=== PATIENT | male | born 1945 | race Caucasian/White ===

== ENCOUNTER 2024-05-28 19:48 | Emergency (ER) | payer MEDICARE, SELFPAY ==
--- NOTE | ~2024-05-28 | XR_ITS ---
EXAMINATION: XR TOES, LEFT CLINICAL INFORMATION: Second toe pain, evaluate for osteomyelitis. COMPARISON: None available. TECHNIQUE: 3 views of the left toes were obtained. FINDINGS: Very limited evaluation of the second toe due to hammertoe deformity. Within limitations, no discrete displaced fracture or aggressive-appearing osseous abnormality. Punctate radiopacity in the ventral soft tissues adjacent to the second toe could represent a tiny foreign body. XR/XR toe LT min 2V IMPRESSION: Very limited evaluation of the second toe without discrete fracture or radiographic evidence of osteomyelitis. Consider further evaluation with CT or MRI as clinically warranted. Electronically signed by: Sia العلي MD 05/28/2024 10:03 PM EDT
[2024-05-28 20:08] VITALS: PULSE 88; RESP 16; TEMP 36.3; O2SAT 98; BMI 20.6
--- NOTE | 2024-05-28 20:12 | ED_ITS ---
HPI - General Adult General Chief complaint: Extremity Problem Stated complaint: Lt toe infection sent by Urgent Care Time Seen by Provider: 05/28/24 22:41 Source: patient Mode of arrival: ambulatory Limitations: no limitations History of Present Illness ED Provider: Dr. Danyelle Bell HPI narrative: Patient comes to the emergency room complaining of one week of left 2nd toe pain. patient denies fever or chills. Denies any obvious injury. patient went to urgent care today and was sent to the emergency room for further evaluation. Related Data Previous Rx's ?Medication ?Instructions ?Recorded cephalexin 500 mg capsule 500 mg PO BID #14 caps 05/28/24 doxycycline hyclate 100 mg capsule 100 mg PO BID #14 caps 05/28/24 tramadol 50 mg tablet 50 mg PO BID PRN pain #6 tabs 05/28/24 Allergies Allergy/AdvReac Type Severity Reaction Status Date / Time No Known Allergies Allergy Verified 05/28/24 20:15 Review of Systems 2 Review of Systems: Constitutional : No Weight loss, No Fever, No Chills, No Night Sweats, No Fatigue, No Malaise ENT/Mouth : No Hearing loss, No Ear Pain, No Nasal Congestion, No Sinus Pain, No Hoarseness, No sore throat, No Rhinorrhea, No Swallowing Difficulty Eyes: No Eye Pain, No Swelling, No Redness, No Foreign Body, No Discharge, No Vision Changes Cardiovascular : No Chest Pain, No SOB, No Dyspnea on Exertion, No Orthopnea, No Edema, No Palpitations Respiratory : No Cough, No Sputum, No Wheezing, No Smoke Exposure, No Dyspnea Gastrointestinal : No Nausea, No Vomiting, No Diarrhea, No Constipation, No abdominal Pain, No Hematochezia, No Melena Genitourinary : no irregular bleeding, No Dysuria, No Urinary Frequency, No Hematuria, No Urinary Incontinence, No Urgency, No Flank Pain, No Urinary Flow Changes, No Hesitancy Musculoskeletal : No joint pain, No Myalgias, No Joint Swelling Skin : Complaining of a skin infection in the left 2nd toe Neuro : No Weakness, No Numbness, No Paresthesias, No Loss of Consciousness, No Dizziness, No Headache Psych : No Anxiety/Panic, No Depression, No SI/HI/AH/VH, No Social Issues, Heme/Lymph: No Bruising, No Bleeding,No Lymphadenopathy Endocrine : No Polyuria, No Polydipsia, No Temperature Intolerance PMFSH Social History Social History Smoked in Last 30 Days: No Use of substances other than those prescribed or required for medical reasons: No Advance Directives: No Advance Directives Information Provided: No Do you have a plan to hurt others: No Plan Physical Exam ED Vital Signs: Vital Signs - 24 hr 05/28/24 20:08 05/28/24 20:54 05/28/24 21:32 Temperature 97.4 F 93.9 F L 98.1 F Pulse Rate 88 92 89 Respiratory Rate 16 16 20 Blood Pressure 116/69 112/52 L Pulse Oximetry 98 97 Oxygen Delivery Method Room Air Room Air BMI result Body Mass Index 20.6 Const Other: Appearance: Alert. Oriented X3. No acute distress. Eyes: Pupils equal, round and reactive to light. ENT: Pharynx normal. Neck: Normal inspection. Neck supple. No lymph nodes noted. No crepitus CVS: Normal heart rate and rhythm. Pulses normal. Normal S1 and S2 Respiratory: No respiratory distress. Breath sounds normal. No Wheezing. No rales Abdomen: Soft and nontender. No rigidity. No distention. Skin: Skin warm and dry. Normal skin color. Normal skin turgor. Extremities: No lower extremity edema. No Lacerations. No Rash patient's 2nd digit of the left foot is erythematous, swollen, painful to pain patient. Neuro: Oriented X 3. No motor deficit. No sensory deficit. Moving all extremities. No slurred speech. CN 2 through 12 grossly intact Psych: calm, cooperative, normal affect Course Course Course Narrative: RME, this is a rapid medical exam performed by Arden Abarca please refer to primary provider for complete H&P- 78 year old male presents for evaluation of left 2nd toe pain. He reports there was a small wound from friction that is now red, swollen, and painful. Symptoms started one week ago per his report. Plan for labs including inflammatory markers and an x-rays Medications Administered Discontinued Medications Generic Name Dose Route Start Last Admin Trade Name Freq PRN Reason Stop Dose Admin Cefuroxime Axetil 500 mg 05/28/24 22:47 05/28/24 22:55 Cefuroxime Axetil 500 Mg Tablet PO 05/28/24 22:48 500 mg ONCE ONE Administration Doxycycline Monohydrate 100 mg 05/28/24 22:47 05/28/24 22:55 Doxycycline Monohydrate 100 Mg Capsule PO 05/28/24 22:48 100 mg ONCE ONE Administration Tramadol HCl 50 mg 05/28/24 22:47 05/28/24 22:55 Tramadol Hcl 50 Mg Tablet PO 05/28/24 22:48 50 mg ONCE ONE Administration Medical Decision Making Medical Decision Making [facility] Narrative: Interpretation of labs, patient's white blood cell count slightly elevated, pretty much normal. ESR within normal limits. LFTs slightly elevated, CRP 1.48 - x-ray did not show any obvious fracture. radiology report: Very limited evaluation of 2nd toe without discrete fracture or evidence of osteomyelitis - patient was given the 1st dose of Keflex and doxycycline in the ED I discussed with the patient that if they feel continues having symptoms, no improvement or any worsening symptoms, he needs to return to the emergency room and positively plan for admission. Lab Data [facility] Lab Attestation statement: I reviewed the patient's lab results. 05/28/24 20:46 05/28/24 20:46 Labs: Lab Results 05/28/24 05/28/24 Range/Units 20:45 20:46 WBC 10.9 H (4.8-10.8) X10*3/uL RBC 5.89 H (4.60-5.80) X10*6/uL Hgb 15.4 (14.0-18.0) g/dl Hct 50.6 (42.0-52.0) % MCV 85.9 (80.0-98.0) fL MCH 26.1 L (27.0-33.0) pg MCHC 30.4 L (31.0-36.0) g/dl RDW 21.7 H (11.0-16.0) % Plt Count 470 H (160-400) X10*3/uL MPV 11.5 (9.4-12.4) fL Immature Gran % (Auto) Cancelled Neut % (Auto) Cancelled Lymph % (Auto) Cancelled [place] % (Auto) Cancelled Eos % (Auto) Cancelled Baso % (Auto) Cancelled Lymph # (Auto) Cancelled [place] # (Auto) Cancelled Eos # (Auto) Cancelled Baso # (Auto) Cancelled Abs Immat Gran (auto) Cancelled Absolute Neuts (auto) Cancelled Absolute Nucleated RBC 0.000 (0.0-0.012) X10*3/uL Nucleated RBC % (auto) 0.0 (0.0-0.2) /100WBC Neutrophils % (Manual) 82 H (45-73) % Band Neutrophils % 0 L (3-5) % Lymphocytes % (Manual) 10 L (20-40) % Atypical Lymphs % (Man) 1 (0-6) % Monocytes % (Manual) 5 (2-11) % Eosinophils % (Manual) 2 (0-4) % Abs Neuts (Manual) 8.9 H (2.0-8.3) X10*3/uL Lymphocytes # (Manual) 1.1 L (1.2-4.9) X10*3/uL Atyp Lymphs # (Manual) 0.1 x10*3/uL Monocytes # (Manual) 0.5 (0.1-1.2) X10*3/uL Eosinophils # (Manual) 0.2 (0.0-0.4) X10*3/uL Platelet Estimate NORMAL (NORMAL) Giant Platelets PRESENT Plt Morphology Comment NOTED RBC Morphology NOTED [place] Cells 1+ (0-2) /OIF Schistocytes 1+ (0-2) /OIF ESR 1 (0-15) MM/HR PT 20.7 H (10.9-12.4) SEC INR 1.8 H (0.9-1.1) Sodium 140 (135-145) mmol/L Potassium 5.3 H (3.3-5.1) mmol/L Chloride 106 (96-108) mmol/L Carbon Dioxide 27 (22-29) mmol/L Anion Gap 12 (12-20) BUN 41 H (9-16) mg/dL Creatinine 1.40 (0.5-1.4) mg/dL Estim Creat Clear Calc 40.6 Estimated GFR 49 Random Glucose 89 (60-115) mg/dL Lactic Acid 0.9 (0.5-2.0) mmol/L Calcium 10.4 H (8.4-10.2) mg/dL Total Bilirubin 0.7 (0.0-1.0) mg/dL AST 56 H (5-37) U/L ALT 43 H (0-40) U/L Alkaline Phosphatase 202 H (39-117) U/L C-Reactive Protein 1.48 H (< or = 0.50) mg/dL Total Protein 7.3 (6.5-8.0) g/dL Albumin 4.4 (3.5-5.0) g/dL Lipase 22 (8-78) U/L Independent Interpretation I performed an independent interpretation of an: Plain X-Ray Radiology Impression Discussion of test interpretation with radiology: I have reviewed the radiologist's reading. Radiologist Impression: Very limited evaluation of the second toe due to hammertoe deformity. Within limitations, no discrete displaced fracture or aggressive-appearing osseous abnormality. Punctate radiopacity in the ventral soft tissues adjacent to the second toe could represent a tiny foreign body. XR/XR toe LT min 2V IMPRESSION: Very limited evaluation of the second toe without discrete fracture or radiographic evidence of osteomyelitis. Consider further evaluation with CT or MRI as clinically warranted. Discharge Plan Discharge Clinical Impression: Cellulitis Patient Disposition: Home, Self-Care Instructions: Cellulitis (ED) Additional Instructions: Please follow-up with your primary care physician tomorrow. If you have any worsening or new symptoms, please return to the emergency room or call 911 Prescriptions: New doxycycline hyclate 100 mg capsule 100 mg PO BID Qty: 14 0RF cephalexin 500 mg capsule 500 mg PO BID Qty: 14 0RF tramadol 50 mg tablet 50 mg PO BID PRN (Reason: pain) Qty: 6 0RF Print Language: [place]i
[2024-05-28 20:54] VITALS: BP 116/69; PULSE 92; RESP 16; TEMP 34.4
[2024-05-28 20:55] LABS: Hematocrit 50.6 % (42.0-52.0); Hemoglobin 15.4 g/dl (14.0-18.0); Mean Corpuscular HGB Conc 30.4 g/dl (31.0-36.0); Mean Corpuscular Hemoglobin 26.1 pg (27.0-33.0); Mean Corpuscular Volume 85.9 fL (80.0-98.0); Mean Platelet Volume 11.5 fL (9.4-12.4); Platelet Count 470 X10*3/uL (160-400); Red Blood Count 5.89 X10*6/uL (4.60-5.80); Red Cell Distribution Width 21.7 % (11.0-16.0); WBC ABN SCTR FOR CBC 1
[2024-05-28 20:56] LABS: White Blood Count 10.9 X10*3/uL (4.8-10.8)
[2024-05-28 21:00] LABS: INTERNATIONAL NORM RATIO 1.8 (0.9-1.1); Prothrombin Time 20.7 SEC (10.9-12.4)
[2024-05-28 21:04] LABS: Lactic Acid 0.9 mmol/L (0.5-2.0)
--- NOTE | 2024-05-28 21:07 | ECG_ITS ---
Test Reason : AFIB Blood Pressure : / mmHG Vent. Rate : 077 BPM Atrial Rate : 000 BPM P-R Int : 000 ms QRS Dur : 110 ms QT Int : 402 ms P-R-T Axes : 000 -18 004 degrees QTc Int : 454 ms Atrial fibrillation Possible Inferior infarct , age undetermined Abnormal ECG No previous ECGs available Referred By: Generic ED Physician Electronically Signed By:Wilmar Owusu
[2024-05-28 21:18] LABS: Atypical Lymph Absolute Manual 0.1 x10*3/uL; Atypical Lymphs Percent Manual 1 % (0-6); Band Neutrophils Percent 0 % (3-5); Eosinophils Absolute Manual 0.2 X10*3/uL (0.0-0.4); Eosinophils Percent Manual 2 % (0-4); Lymphocytes Absolute Manual 1.1 X10*3/uL (1.2-4.9); Lymphocytes Percent Manual 10 % (20-40); Monocytes Absolute Manual 0.5 X10*3/uL (0.1-1.2); Monocytes Percent Manual 5 % (2-11); Neutrophils Absolute Manual 8.9 X10*3/uL (2.0-8.3); Neutrophils Percent Manual 82 % (45-73)
[2024-05-28 21:20] LABS: Giant Platelet PRESENT; Platelet Estimate NORMAL (NORMAL); Platelet Morphology Comment NOTED
[2024-05-28 21:21] LABS: Burr Cells 1+ (0-2) /OIF; RBC Morphology NOTED
[2024-05-28 21:22] LABS: Schistocytes 1+ (0-2) /OIF
[2024-05-28 21:24] LABS: Alanine Aminotransferase 43 U/L (0-40); Albumin Level 4.4 g/dL (3.5-5.0); Alkaline Phosphatase 202 U/L (39-117); Anion Gap 12 (12-20); Aspartate Amino Transferase 56 U/L (5-37); Bilirubin Total 0.7 mg/dL (0.0-1.0); Blood Urea Nitrogen 41 mg/dL (9-16); C Reactive Protein 1.48 mg/dL (< or = 0.50); Calcium 10.4 mg/dL (8.4-10.2); Carbon Dioxide 27 mmol/L (22-29); Chloride 106 mmol/L (96-108); Creatinine Clr Calc Pharmacy 40.6; Estimated Glomerular Filt Rate 49; Glucose Random 89 mg/dL (60-115); Lipase 22 U/L (8-78); Potassium 5.3 mmol/L (3.3-5.1); Sodium 140 mmol/L (135-145); Total Protein 7.3 g/dL (6.5-8.0)
[2024-05-28 21:32] VITALS: BP 112/52; PULSE 89; RESP 20; TEMP 36.7; O2SAT 97
[2024-05-28 21:33] LABS: Erythrocyte Sedimentation Rate 1 MM/HR (0-15)
--- NOTE | 2024-05-28 21:33 | MHC.EDTECH ---
This tech took over care of patient at this time,introduced self to patient,patient came in from the waiting area, oral temp was taken by RN was 93.7,this chart writer placed a continuos rectal probe,temp is 98.1,patient has a slit on butt crack,anus area has small opening areas,RN was called to room,placed some barrier cream,granddaughter at bedside,call pavon in room
[2024-05-28] MEDS: cefuroxime axetiL 500 MG TABLET PO (22:55)
[2024-05-28] MEDS: Doxycycline Monohydrate 100 MG CAPSULE PO (22:55)
[2024-05-28] MEDS: traMADoL HCL 50 MG TABLET PO (22:55)
[2024-05-28 23:44] VITALS: BP 127/71; PULSE 91; RESP 20; TEMP 36.7; O2SAT 95
--- NOTE | 2024-05-28 23:45 | MHC.EDTECH ---
Rectal probe removed at this time,vitals taken,patient is being discharged at this time,granddaughter at bedside
[2024-05-28 23:49] VITALS: BP 127/71; PULSE 91; RESP 20; TEMP 36.7; O2SAT 95
== END 2024-05-28 23:50 | disposition home or self-care (01) ==
PROVIDERS: Physician Assistant; Emergency Provider Emergency Medicine
DX: L03.032 Cellulitis of left toe (principal); M79.672 Pain in left foot; I48.91 Unspecified atrial fibrillation; Z79.899 Other long term (current) drug therapy
CPT/HCPCS: 36415; 73660; 80053; 83605; 83690; 85007; 85027; 85610; 85652; 86140; 87040; 93005; 99284; 99285

== ENCOUNTER → 2024-05-28 21:07 | Outpatient (BNV) | payer MEDICARE, SELFPAY | PROVIDERS: Emergency Provider Emergency Medicine; Visit Provider Internal Medicine Cardiovascular Disease | DX: I48.91 Unspecified atrial fibrillation (principal); R94.31 Abnormal electrocardiogram [ECG] [EKG] | CPT/HCPCS: 93010 ==